=== PATIENT | male | born 1990 | race African-American/Black ===

== ENCOUNTER 2020-03-22 08:58 | Emergency (ER) | payer MEDICARE, OTHER ==
[~2020-03-22] VITALS: Ht 175.3 cm; Wt 68.2 kg
[2020-03-22 09:11] VITALS: BP 110/64
== END 2020-03-22 09:40 | disposition home or self-care (01) ==
LOC: EMS 08:58
DX: T73.0XXA Starvation, initial encounter (principal); Z59.0 Homelessness; X58.XXXA Exposure to other specified factors, initial encounter
CPT/HCPCS: 99283; Z7502

== ENCOUNTER 2020-06-28 10:59 | Inpatient (IN) | payer MEDICARE, MEDICAID ==
[~2020-06-28] VITALS: Ht 167.6 cm; Wt 55.4 kg
[2020-06-28 13:16] LABS: AMPHET/METH SCREEN,URINE NEGATIVE (NEGATIVE); BARBITURATE SCREEN, URINE NEGATIVE (NEGATIVE); BENZODIAZEPINES SCREEN,URINE POSITIVE (NEGATIVE); CANNABINOID SCREEN,URINE POSITIVE (NEGATIVE); COCAINE SCREEN,URINE NEGATIVE (NEGATIVE); METHADONE SCREEN, URINE NEGATIVE (NEGATIVE); OPIATE SCREEN,URINE NEGATIVE (NEGATIVE)
[2020-06-28 13:17] LABS: PHENCYCLIDINE SCREEN,URINE NEGATIVE (NEGATIVE)
[2020-06-28 14:04] LABS: BASOPHILS % (AUTO) 0.8 % (0.0-2.0); EOSINOPHILS % (AUTO) 1.5 % (1.0-6.0); HEMATOCRIT 39.2 % (41-53); HEMOGLOBIN 13.1 g/dL (13.5-17.5); LYMPHOCYTES # (AUTO) 1.3 K/uL (1.0-4.8); LYMPHOCYTES % (AUTO) 19.1 % (22.0-44.0); MEAN CORPUSCULAR HEMOGLOBIN 29.2 pg (26.0-34.0); MEAN CORPUSCULAR HGB CONC 33.4 G/dL (31.0-37.0); MEAN CORPUSCULAR VOLUME 88 fL (80-100); MONOCYTES # (AUTO) 0.9 K/uL (0.1-1.0); MONOCYTES % (AUTO) 12.5 % (2.0-9.0); NEUTROPHILS # (AUTO) 4.6 K/uL (1.8-7.7); NEUTROPHILS % (AUTO) 66.1 % (40.0-70.0); PLATELET COUNT (AUTO) 248 K/uL (150-450); RED BLOOD CELL COUNT(AUTO) 4.47 MIL/uL (4.50-5.90); RED CELL DISTRIBUTION WIDTH 14.7 % (11.5-14.5)
[2020-06-28 14:16] LABS: ANION GAP 6 mmol/L (8-16); CALCIUM, TOTAL 9.1 mg/dL (8.8-10.5); CARBON DIOXIDE 29 mmol/L (22-29); CHLORIDE 102 mmol/L (98-107); GLOMERULAR FILTR. RATE CALC > 60 mL/min (>60); GLUCOSE,RANDOM 140 mg/dL (70-110); SODIUM SERUM 137 mmol/L (136-145); UREA NITROGEN, BLOOD 25 mg/dL (7-18)
[2020-06-28 14:22] LABS: ALANINE AMINOTRANSFERASE 26 U/L (12-78); ALBUMIN 3.4 g/dL (3.4-5.0); ALKALINE PHOSPHATASE 63 U/L (46-116); ASPARTATE AMINOTRANSFERASE 57 U/L (15-37); BILIRUBIN,TOTAL 0.4 mg/dL (0.1-1.0); TOTAL PROTEIN, SERUM 8.9 g/dL (6.4-8.2)
[2020-06-28] MEDS ORDERED: ZOLPIDEM TARTRATE 10 MG TABLET PO PRN (14:45)
[2020-06-28] MEDS ORDERED: HALOPERIDOL 5 MG TABLET PO PRN (14:45)
[2020-06-28 15:11] LABS: COVID AG,FIA SOURCE NASOPHARYNGEAL
[2020-06-28 19:11] VITALS: BP 111/67
[2020-06-29] MEDS: LORazepam 2 MG TABLET PO PRN (08:30)
[2020-06-29 08:37] VITALS: BP 107/63
[2020-06-29] MEDS ORDERED: CloNIDine HCL 0.1 MG TABLET PO PRN (08:45)
[2020-06-29] MEDS ORDERED: GuaiFENesin/D-METHORPHAN [SUGAR-FREE] 200-20MG/10 ML SYRUP UDCUP PO PRN (08:45)
[2020-06-29] MEDS ORDERED: ONDANSETRON HCL 4 MG TABLET PO PRN (08:45)
[2020-06-29] MEDS ORDERED: MAGNESIUM HYDROXIDE SUSPENSION 30 ML UDCUP PO PRN (08:45)
[2020-06-29] MEDS ORDERED: PETROLATUM,WHITE 28 GM JELLY TP PRN (08:45)
[2020-06-29] MEDS ORDERED: NICOTINE 14 MG/24 HOUR PATCH TD PRN (08:45)
[2020-06-29] MEDS ORDERED: ALBUTEROL SULFATE HFA 90 MCG/PUFF 8 GM INHALER IH PRN (08:45)
[2020-06-29] MEDS ORDERED: ACETAMINOPHEN 325 MG TABLET PO PRN (08:45)
[2020-06-29] MEDS ORDERED: LOPERAMIDE HCL 2 MG CAPSULE PO PRN (08:45)
[2020-06-29] MEDS ORDERED: DOCUSATE SODIUM 100 MG CAPSULE PO PRN (08:45)
[2020-06-29] MEDS ORDERED: IBUPROFEN 400 MG TABLET PO PRN (08:45)
[2020-06-29] MEDS ORDERED: MAG HYDROX/AL HYDROX/SIMETH ES 30 ML SUSPENSION UDCUP PO PRN (08:45)
[2020-06-29] MEDS: CEPHALEXIN MONOHYDRATE 500 MG CAPSULE PO SCH ×2 (13:20→19:36)
[2020-06-29 16:10] VITALS: BP 107/63
[2020-06-29] MEDS: OLANZapine 5 MG TABLET PO SCH (16:50)
[2020-06-30] MEDS: CEPHALEXIN MONOHYDRATE 500 MG CAPSULE PO SCH ×4 (00:01→23:53)
[2020-06-30 00:19] VITALS: BP 102/63
[2020-06-30 08:14] VITALS: BP 124/73
[2020-06-30] MEDS: LORazepam 2 MG TABLET PO PRN ×2 (08:14→18:38)
[2020-06-30] MEDS: OLANZapine 5 MG TABLET PO SCH (08:41)
[2020-06-30 16:07] VITALS: BP 110/60
[2020-06-30] MEDS: OLANZapine 10 MG TABLET PO SCH (16:39)
[2020-07-01 02:23] VITALS: BP 139/86
[2020-07-01] MEDS: LORazepam 2 MG TABLET PO PRN (02:33)
[2020-07-01] MEDS: CEPHALEXIN MONOHYDRATE 500 MG CAPSULE PO SCH (08:20)
[2020-07-01] MEDS: OLANZapine 10 MG TABLET PO SCH (08:20)
[2020-07-01 08:31] VITALS: BP 103/61
[2020-07-01] MEDS ORDERED: OLAN10TA3 PO (13:05)
[2020-07-01] MEDS ORDERED: CEPH-582 PO (13:05)
[2020-07-01 19:06] LABS: COVID AG,FIA SOURCE NASAL SWAB
== END 2020-07-01 15:36 | disposition home or self-care (01) | DRG 885 ==
LOC: EMS 11:03 → B2X 14:37
PROVIDERS: ADMIT Psychiatry & Neurology Psychiatry; ATTEND Psychiatry & Neurology Psychiatry
DX: F20.9 Schizophrenia, unspecified (principal); F17.210 Nicotine dependence, cigarettes, uncomplicated; R73.9 Hyperglycemia, unspecified; D64.9 Anemia, unspecified; F12.90 Cannabis use, unspecified, uncomplicated; Z20.828 Contact with and (suspected) exposure to other viral communicable diseases; F99 Mental disorder, not otherwise specified; Z91.83 Wandering in diseases classified elsewhere
CPT/HCPCS: 87426; G0480